=== PATIENT | male | born 1990 | race Caucasian/White ===

== ENCOUNTER 2016-05-27 19:57 | Emergency (ER) | payer BC ==
[2016-05-27 20:49] VITALS: BP 129/84
[2016-05-27] MEDS ORDERED: Ketorolac INJ* 30 MG/ML 1 ML VIAL IV PUSH ONE (22:00)
--- NOTE | 2016-05-27 22:13 | UC ---
Grace Luevano Anna, scribed for Kasie Pritchett MD on 05/27/16 at 2154 . Abdominal Pain Male HPI - HPI Summary HPI Summary: Patient is a 26 y/o male coming to [facility] presenting with gradual onset of constant epigastric abdominal pain that began this afternoon. He had a burger, fries, and beer for lunch and when he came home he did not feel well. He feels nauseous and bloated, as if there were a balloon in his abdomen. Per triage notes, he initially described the severity of his pain. The patient now describes the severity of the pain as 8/10. He experienced one episode of emesis this afternoon. Denies hematochezia, melena, hematuria, or other changes in urination. He describes the pain as similar to gastritis in December 05, 2015. Patient had an US of the gall bladder at that time, which did not reveal any acute findings, including no cholelithiasis. He was treated with Pantoprazole then, which he did not provide much relief. He tried one Pantoprazole today [employer] and it did not provide relief today either. He has never been scoped. - History of Current Complaint Chief Complaint: UCAbdominalPain Stated Complaint: UPPER ABD PAIN Hx Obtained From: Patient, Family/Ager Tender - Accompanied by significant other Onset/Duration: Gradual Onset, Lasting Hours, Still Present Timing: Constant Severity Initially: Moderate Severity Currently: Moderate Pain Intensity: 8 Pain Scale Used: 0-10 Numeric Location: Discrete At: RUQ, Epigastric Radiates: No Character: Other - bloating Aggravating Factor(s):: Food Alleviating Factor(s): Nothing Associated Signs And Symptoms: Positive: Nausea, Vomiting. Negative: Fever, Blood in Stool, Diarrhea - Allergies/Home Medications Allergies/Adverse Reactions: Allergies Allergy/AdvReac Type Severity Reaction Status Date / Time Cefuroxime [From Ceftin] Allergy Rash Verified 05/27/16 20:49 PMH/Surg Hx/FS Hx/Imm Hx Endocrine History Of: Denies: Diabetes Cardiovascular History Of: Denies: Hypertension GI/ History Of: Reports: Gastroesophageal Reflux - gastritis - Surgical History Surgical History: Yes Surgery Procedure, Year, and Place: Right shoulder 2011. Ear tube surgery as a child. - Family History Known Family History: Positive: Other - Hx kidney CA in grandfather. Negative: Hypertension, Diabetes Family History: Hx gall bladder disease in family on mother's side and paternal grandmother. - Social History Occupation: Employed Full-time - teacher Lives: With Family Alcohol Use: Occasionally Substance Use Type: None Smoking Status (MU): Never Smoked Tobacco Review of Systems Constitutional: Negative Skin: Negative Eyes: Negative ENT: Negative Respiratory: Negative Cardiovascular: Negative Gastrointestinal: Abdominal Pain, Vomiting, Other - nausea Genitourinary: Negative Motor: Negative Neurovascular: Negative Musculoskeletal: Negative Neurological: Negative Psychological: Negative All Other Systems Reviewed And Are Negative: Yes Physical Exam Triage Information Reviewed: Yes Appearance: Well-Appearing, Well-Nourished, Pain Distress Vital Signs: Initial Vital Signs Temp 97.2 F 05/27/16 20:45 Pulse 75 05/27/16 20:45 Resp 18 05/27/16 20:45 BP 129/84 05/27/16 20:45 Pulse Ox 99 05/27/16 20:45 High blood pressure noted. Vital Signs Reviewed: Yes Eyes: Positive: Conjunctiva Clear ENT Exam: Normal Neck: Positive: Supple Respiratory: Positive: Lungs clear, Normal breath sounds, No respiratory distress Cardiovascular: Positive: RRR, No Murmur, Pulses Normal, Brisk Capillary Refill Abdominal Exam: Other - Tender in RUQ and epigastric region. No rebound. Abdomen Description: Positive: No Organomegaly. Negative: Bruit, CVA Tenderness (R), CVA Tenderness (L), Distended, Guarding, Hepatomegaly, McBurney' s Point Tenderness, Peritoneal Signs, Pulsatile Mass, Splenomegaly Bowel Sounds: Positive: Present Musculoskeletal: Positive: Strength Intact, ROM Intact Neurological: Positive: Alert, Muscle Tone Normal Psychological Exam: Normal Skin Exam: Normal Abd Pain Male Course/Dx - Course Course Of Treatment: High blood pressure noted. Pt advised to have definite follow up regarding elevated BP within one month. Allergies noted. Discussed potential treatment options and diagnostic capabilities at [facility]. Patient agrees to be transferred. Discussed risk of travel by private car and advised that the patient not eat. Agrees to travel via ambulance. - Differential Dx/Clinical Impression Differential Diagnosis/HQI/PQRI: Gall Bladder Disease, Hepatitis, Pancreatitis, Peptic Ulcer Disease, Ureteral Stone, Other - gastritis Provider Diagnoses: RUQ and epigastric abdominal pain. elevated BP without diagnosis of HTN - Physician Notification/Consults Discussed Patient Care With: Called [facility] at 2202. Shahana Rincon (ED PA) at 2203. Agrees to accept patient at ED. Time Discussed With Above Provider: 22:03 Instructed by Provider To: MD Will See In ED Discharge - Discharge Plan Condition: Stable Disposition: TRANS HIGHER LVL OF CARE FAC Forms: *Work Release Referrals: Raheem Gonzalez MD [Primary Care Provider] - The documentation as recorded by the Grace herrera Anna accurately reflects the service I personally performed and the decisions made by , Kasie Pritchett MD.
== END 2016-05-27 22:26 | disposition short-term general hospital (02) ==
LOC: UCEAST 19:57
DX: R10.11 Right upper quadrant pain (principal); R10.13 Epigastric pain; R03.0 Elevated blood-pressure reading, without diagnosis of hypertension; R11.2 Nausea with vomiting, unspecified; K21.9 Gastro-esophageal reflux disease without esophagitis; Z88.1 Allergy status to other antibiotic agents
CPT/HCPCS: 96374; 99213; G0463; J1885

== ENCOUNTER 2016-05-27 22:53 | Emergency (ER) | payer BC ==
[2016-05-27] MEDS ORDERED: NS 0.9% 1000 ML* 1,000 ML IV ONE (22:59)
--- NOTE | 2016-05-27 23:23 | ED ---
Abdominal Pain/Male - HPI Summary HPI Summary: 26M presents with RUQ pain today s/p eating a burger. He states he has pain like this when he had gastritis. He states had normal u/s at this time. He states that he took pantoprazole at the time and has not taken it since except today which did not help. He did vomit once and he admits to nausea. He describes the pain as a balloon in his abdomen. He denies any dysura, diarrhea , constipation, or fever. He has not followed up with GI or been scoped before. He states pain is 4/10. - History of Current Complaint Stated Complaint: XFER FROM EAST Time Seen by Provider: 05/27/16 22:58 Pain Intensity: 5 - Allergies/Home Medications Allergies/Adverse Reactions: Allergies Allergy/AdvReac Type Severity Reaction Status Date / Time Cefuroxime [From Ceftin] Allergy Rash Verified 05/27/16 20:49 PMH/Surg Hx/FS Hx/Imm Hx Endocrine/Hematology History: Denies: Hx Diabetes Cardiovascular History: Denies: Hx Hypertension - Surgical History Surgery Procedure, Year, and Place: Right shoulder 2012. Ear tube surgery as a child. Infectious Disease History: No Infectious Disease History: Denies: Traveled Outside the [place] in Last 30 Days - Family History Known Family History: Positive: None, Other - Hx kidney CA in grandfather. Negative: Hypertension, Diabetes Family History: Hx gall bladder disease in family on mother's side and paternal grandmother. - Social History Alcohol Use: Occasionally Substance Use Type: Reports: None Smoking Status (MU): Never Smoked Tobacco Review of Systems Negative: Fever Negative: Chest Pain Negative: Shortness Of Breath Positive: Abdominal Pain - RUQ. Negative: Vomiting, Diarrhea, Nausea All Other Systems Reviewed And Are Negative: Yes Physical Exam Triage Information Reviewed: Yes Vital Signs On Initial Exam: Initial Vitals Temp Pulse Resp BP Pulse Ox 97.7 F 66 18 122/75 97 05/27/16 23:05 05/27/16 23:05 05/27/16 23:05 05/27/16 23:05 05/27/16 23:05 Vital Signs Reviewed: Yes Appearance: Positive: Well-Appearing Skin: Positive: Warm, Dry Head/Face: Positive: Normal Head/Face Inspection Eyes: Positive: Normal, Conjunctiva Clear Respiratory/Lung Sounds: Positive: Clear to Auscultation, Breath Sounds Present Cardiovascular: Positive: Normal, RRR Abdomen Description: Positive: Soft, Other: - mild tenderness to RUQ. Negative : Distended, Guarding Bowel Sounds: Positive: Present Diagnostics - Vital Signs Vital Signs Temp Pulse Resp BP Pulse Ox 05/27/16 23:05 97.7 F 66 18 122/75 97 - Laboratory Result Diagrams: 05/28/16 00:18 05/28/16 00:18 Lab Statement: Any lab studies that have been ordered have been reviewed, and results considered in the medical decision making process. - Ultrasound No standard instances Ultrasound Interpretation: Positive (See Comments) - normal gallbladder. no gallstones. no pericholecystic fluid. no gallbaldder wall thickening. u/s harding sign negative. normal common bile duct. trace free fluid in summer hepatis. unceratin etiology. recommend followup. Ultrasound Interpretation Completed By: Radiologist Re-Evaluation - Re-Evaluation First Eval Re-Evaluation Time: 01:37 Change: Improved Comment: sleeping in room Abdominal Pain Fem Course/Dx - Course Course Of Treatment: 26M presents as transfer from for epigastric pain today started after eatting burger. states similiar pain till when had gastritis in past. did vomit once without blood. on exam tender in RUQ with neg harding. labs WBC 11.2 and rest normal. u/s normal gallbladder. told could be gastritis again so should restart protonix and follow up with primary. patient understands and agrees with plan - Diagnoses Differential Diagnosis/HQI/PQRI: Gall Bladder Disease, Other - gastritis, gastroenteritis Provider Diagnoses: Epigastric pain Discharge - Discharge Plan Condition: Good Disposition: HOME Patient Education Materials: Epigastric Pain (ED) Referrals: Robert Condon MD [Medical Doctor] - Raheem Gonzalez MD [Primary Care Provider] - Additional Instructions: Take Pantoprazole once a day Follow up with primary care physician within 5 days Take Tylenol every 6 hours for pain Consider following up with GI Return to ED if develop fever, or any new or worsening symptoms
[2016-05-28 00:47] LABS: Hematocrit 45 % (42-52); Hemoglobin 15.2 g/dl (14.0-18.0); Mean Corpuscular HGB Conc 34 g/dl (31-36); Mean Corpuscular Hemoglobin 30 pg (27-31); Mean Corpuscular Volume 89 fL (80-94); Mean Platelet Volume 10 um3 (7.4-10.4); Red Blood Count 5.05 10^6/ul (4.0-5.4); Red Cell Distribution Width 13 % (10.5-15); White Blood Count 11.2 10^3/ul (3.5-10.8)
[2016-05-28 00:48] LABS: Albumin 4.1 g/dL (3.2-5.2); BUN/Creatinine Ratio 19.6 (8-20); Calcium 8.5 mg/dL (8.6-10.3); EGFR African American 122.3 (>60); EGFR Non-African American 95.1 (>60); Globulin 2.4 g/dL (2-4); Potassium 3.7 mmol/L (3.5-5.0); Total Protein 6.5 g/dL (6.4-8.9)
[2016-05-28 01:05] LABS: Urine Bilirubin Negative (Negative); Urine Glucose Negative (Negative); Urine Nitrite Negative (Negative)
[2016-05-28 01:35] VITALS: BP 122/76
--- NOTE | 2016-05-28 07:44 | RAD ---
INDICATION: Right upper quadrant pain COMPARISON: December 05, 2015 TECHNIQUE: Longitudinal and transverse scans of the right upper quadrant were obtained. Doppler interrogation of the hepatic and portal venous system was performed. FINDINGS: Liver: The liver is mildly enlarged. There are no focal masses.. The liver measures 19.3 cm in cephalocaudal dimension. Vessels: There is normal hepatic and portal venous flow. Bile ducts: There is no evidence of intrahepatic or extrahepatic ductal dilatation. The common duct measures 0.2 cm. Gallbladder: The sonographic appearance of the gallbladder is normal. There is no evidence of cholelithiasis, thickening of the gallbladder wall, or pericholecystic fluid. Pancreas: The visualized pancreas appears normal Right kidney: The right kidney is normal in size and echogenicity. There are no masses or calculi. There is no evidence of hydronephrosis. The right kidney measures 11.2 x 6.2 x 4.2 cm. IVC and aorta: The aorta and superior vena cava appear normal. Fluid: Trace ascites. Other: None. IMPRESSION: HEPATOMEGALY. TRACE ASCITES.
== END 2016-05-28 01:34 | disposition home or self-care (01) ==
LOC: ED 22:53
DX: R10.13 Epigastric pain (principal); R10.11 Right upper quadrant pain; R10.811 Right upper quadrant abdominal tenderness; R11.2 Nausea with vomiting, unspecified
CPT/HCPCS: 36415; 76705; 80053; 81003; 83690; 85025; 86141; 96360; 99282

== ENCOUNTER → 2016-07-15 15:30 | Emergency (ER) | payer BC ==
[~2016-07-15 15:30] MED LIST: Morphine INJ* 4 MG/ML 1 ML SYRINGE IV ONE; NS 0.9% 1000 ML* 1,000 ML IV ONE; Ondansetron INJ* 2 MG/ML VIAL IV ONE; Pantoprazole IV* 40 MG IV ONE
[2016-07-15 17:51] LABS: Hematocrit 48 % (42-52); Hemoglobin 16.5 g/dl (14.0-18.0); Mean Corpuscular HGB Conc 34 g/dl (31-36); Mean Corpuscular Hemoglobin 30 pg (27-31); Mean Corpuscular Volume 88 fL (80-94); Mean Platelet Volume 9 um3 (7.4-10.4); Red Blood Count 5.48 10^6/ul (4.0-5.4); Red Cell Distribution Width 13 % (10.5-15); White Blood Count 14.3 10^3/ul (3.5-10.8)
[2016-07-15 17:56] LABS: Urine Bilirubin Negative (Negative); Urine Glucose Negative (Negative); Urine Nitrite Negative (Negative)
[2016-07-15 18:09] LABS: Albumin 4.7 g/dL (3.2-5.2); BUN/Creatinine Ratio 12.4 (8-20); C Reactive Protein 1.41 mg/L (< 5.00); Calcium 9.3 mg/dL (8.6-10.3); EGFR African American 82.1 (>60); EGFR Non-African American 63.8 (>60); Globulin 3.2 g/dL (2-4); Potassium 3.8 mmol/L (3.5-5.0); Total Bilirubin 1.3 mg/dL (0.2-1.0); Total Protein 7.9 g/dL (6.4-8.9)
[2016-07-15 19:22] VITALS: BP 136/78
== END | disposition home or self-care (01) ==
LOC: ED 15:30
DX: R10.13 Epigastric pain (principal)
CPT/HCPCS: 36415; 80053; 81003; 82150; 83605; 83690; 85025; 86140; 96374; 96375; 99283; J2270; J2405

== ENCOUNTER 2016-09-16 11:13 | Emergency (ER) | payer BC ==
--- NOTE | 2016-09-16 11:24 | UC ---
HPI Wound/Suture Re-check - HPI Summary HPI Summary: 26 YEAR OLD MALE PRESENTS FOR STAPLE REMOVAL FORM SCALP (6 MOE - BILATERAL LACERATIONS 4 AND 2 MOE) - History Of Current Complaint Chief Complaint: UCLaceration Stated Complaint: STAPLE REMOVAL Time Seen by Provider: 09/16/16 11:17 - Allergies/Home Medications Allergies/Adverse Reactions: Allergies Allergy/AdvReac Type Severity Reaction Status Date / Time Cefuroxime [From Ceftin] Allergy Rash Verified 05/27/16 20:49 PMH/Surg Hx/FS Hx/Imm Hx - Surgical History Surgical History: Yes Surgery Procedure, Year, and Place: Right shoulder 2012. Ear tube surgery as a child. - Family History Known Family History: Positive: None, Other - Hx kidney CA in grandfather. Negative: Hypertension, Diabetes Family History: Hx gall bladder disease in family on mother's side and paternal grandmother. - Social History Alcohol Use: Occasionally Alcohol Amount: "less than half a drink a day, most days" Substance Use Type: None Smoking Status (MU): Never Smoked Tobacco Review of Systems Constitutional: Negative Skin: Other - 6 MOE REMOVED SCALP LACERATION C/D/I Eyes: Negative ENT: Negative Respiratory: Negative Cardiovascular: Negative Gastrointestinal: Negative Genitourinary: Negative Motor: Negative Neurovascular: Negative Musculoskeletal: Negative Neurological: Negative Psychological: Negative All Other Systems Reviewed And Are Negative: Yes Physical Exam Triage Information Reviewed: Yes Vital Signs: Initial Vital Signs Temp 36.6 C 09/16/16 11:15 Pulse 80 09/16/16 11:15 Resp 17 09/16/16 11:15 Pulse Ox 100 09/16/16 11:15 Eye Exam: Normal ENT Exam: Normal Dental Exam: Normal Neck exam: Normal Neck: Positive: 1 Respiratory Exam: Normal Cardiovascular Exam: Normal Abdominal Exam: Normal Musculoskeletal Exam: Normal Neurological Exam: Normal Psychological Exam: Normal Skin Exam: Normal Skin: Positive: Other - 6 MOE REMOVED SCALP LACERATION C/D/I Course/Dx - Differential Dx - Laceration/Wound Provider Diagnoses: STAPLE REMOVAL Discharge - Discharge Plan Condition: Stable Disposition: HOME Patient Education Materials: Staple Care (ED) Referrals: Raheem Gonzalez MD [Primary Care Provider] - If Needed
== END 2016-09-16 11:27 | disposition home or self-care (01) ==
LOC: UCEAST 11:13
DX: Z48.02 Encounter for removal of sutures (principal)
CPT/HCPCS: 99212; G0463

== ENCOUNTER 2017-04-06 15:23 | Emergency (ER) | payer BC ==
[2017-04-06] MEDS ORDERED: Morphine INJ* 4 MG/ML 1 ML CARPUJECT IV ONE (16:13)
[2017-04-06] MEDS ORDERED: NS 0.9% 1000 ML* 1,000 ML IV SCH (16:15)
[2017-04-06] MEDS ORDERED: Ondansetron INJ* 2 MG/ML VIAL IV ONE (16:21)
[2017-04-06] MEDS ORDERED: Morphine INJ* 4 MG/ML 1 ML SYRINGE (NEW SYRINGE VERSION) ONE (16:29)
[2017-04-06] MEDS ORDERED: Morphine INJ* 4 MG/ML 1 ML SYRINGE (NEW SYRINGE VERSION) IV ONE (16:30)
[2017-04-06 17:09] LABS: ABS Basophils 0 10^3/ul (0-0.2); ABS Eosinophils 0.2 10^3/ul (0-0.6); ABS Lymphocytes 2.8 10^3/ul (1.0-4.8); ABS Monocytes 0.7 10^3/ul (0-0.8); ABS Neutrophils 5.3 10^3/ul (1.5-7.7); ABS Nucleated RBC 0 10^3/ul; Eosinophil % 2.2 % (0-6); Hematocrit 45 % (42-52); Hemoglobin 15.5 g/dl (14.0-18.0); Lymphocyte % 31.5 % (25-47); Mean Corpuscular HGB Conc 35 g/dl (31-36); Mean Corpuscular Hemoglobin 31 pg (27-31); Mean Corpuscular Volume 89 fL (80-94); Mean Platelet Volume 9 um3 (7.4-10.4); Nucleated Red Blood Cells % 0.1; Platelet Count 220 10^3/ul (150-450); Red Blood Count 5.03 10^6/ul (4.0-5.4); Red Cell Distribution Width 13 % (10.5-15)
[2017-04-06 17:23] LABS: EGFR Non-African American 109.8 (>60)
[2017-04-06 18:37] VITALS: BP 113/79
--- NOTE | 2017-04-06 18:48 | RAD ---
Indication: Abdominal pain, nausea, vomiting. Comparison: No relevant prior exams available on the [facility] PACS for comparison. Technique: Supine and upright views of the abdomen. Report: No radiographic evidence for free air. Unremarkable bowel gas pattern. Small volume of stool in the colon without significant rectal distension. Negative for suspicious calcifications. Unremarkable soft tissue contours. IMPRESSION: No abdominal pelvic pathologic process evident. Negative exam.
--- NOTE | 2017-04-13 19:43 | ED ---
Prosper Luevano Rebecca, scribed for Geovanni Tirado MD on 04/06/17 at 1609 . Abdominal Pain/Male - HPI Summary HPI Summary: Pt is a 27 y/o M who presents to ED c/o abdominal pain. Pain is in the RUQ and began 1100 this morning, gradually worsening since onset. Pain is described as sharp and pressure that radiates into the back. Sx aggravated by nothing, alleviated by Dicyclomine. Additionally c/o "swelling inside" and N/V with 6-7 episodes with slight hematemesis during the second episode. Denies melena, blood in stool, diarrhea, decreased appetite, fever, and chills. Prior similar episodes since November 2015 with an unknown catalyst. Has seen a GI with a negative CT and endoscopy in July 2016. Had 2 beers last night which is more than he'd usually have in a week. Negative FHx ulcerative colitis and Crohn's Disease. - History of Current Complaint Chief Complaint: EDAbdPain Stated Complaint: ABD PAIN,VOMITING BLOOD Time Seen by Provider: 04/06/17 16:03 Hx Obtained From: Patient Onset/Duration: Still Present Severity Currently: Severe Pain Intensity: 8 Pain Scale Used: 0-10 Numeric Location: Discrete At: RUQ Radiates: Yes Radiates to: Back Character: Sharp, Other: - Pressure Aggravating Factor(s): Nothing Alleviating Factor(s): Medications - Dicyclomine Associated Signs And Symptoms: Positive: Nausea, Vomiting. Negative: Fever, Blood in Stool, Decreased Appetite, Diarrhea Similar Episode/Dx As:: Similar episodes since November 2015 - Allergies/Home Medications Allergies/Adverse Reactions: Allergies Allergy/AdvReac Type Severity Reaction Status Date / Time MS Cefuroxime [From Ceftin] Allergy Rash Verified 05/27/16 20:49 PMH/Surg Hx/FS Hx/Imm Hx Endocrine/Hematology History: Denies: Hx Diabetes Cardiovascular History: Denies: Hx Hypertension - Surgical History Surgery Procedure, Year, and Place: Right shoulder 2011. Ear tube surgery as a child. Infectious Disease History: No Infectious Disease History: Denies: Hx Clostridium Difficile, Hx Hepatitis, Hx Human Immunodeficiency Virus (HIV), Hx of Known/Suspected MRSA, Hx Shingles, Hx Tuberculosis, Hx Known/ Suspected VRE, Hx Known/Suspected VRSA, History Other Infectious Disease, Traveled Outside the [place] in Last 30 Days - Family History Known Family History: Positive: Other - Hx kidney CA in grandfather. Negative: Hypertension, Diabetes Family History: Hx gall bladder disease in family on mother's side and paternal grandmother. No FHx UC or Crohn's. - Social History Alcohol Use: Occasionally Alcohol Amount: "less than half a drink a day, most days" Substance Use Type: Reports: None Smoking Status (MU): Never Smoked Tobacco Review of Systems Negative: Fever, Chills Positive: Abdominal Pain, Vomiting - hematemesis, Nausea, Other - "swelling inside". Negative: Diarrhea Positive: other - NEGATIVE: Melena, blood in stool, decreased appetite All Other Systems Reviewed And Are Negative: Yes Physical Exam - Summary Physical Exam Summary: Appearance: Well-appearing, Well-nourished Skin: Warm, Dry, No rash Eyes: Normal, PERRL, EOMI, sclera anicteric ENT: Normal Neck: Supple, nontender Respiratory: Clear to auscultation Cardiovascular: S1, S2, no murmur, no rub, no gallop Abdomen: Soft, mid-epigastric and RUQ pain, no organomegaly Bowel sounds: Present Musculoskeletal: Normal, Strength/ROM Intact, no edema, pulses symmetrical Neurological: Normal, A&Ox3, cranial nerves II-XII WNL, follows commands, gait not tested, sensation intact to pin and light touch Psychiatric: affect normal, behavior appropriate, dressed appropriately, judgment intact Triage Information Reviewed: Yes Vital Signs On Initial Exam: Initial Vitals Temp Pulse Resp BP Pulse Ox 97.9 F 68 16 129/89 96 04/06/17 15:28 04/06/17 15:28 04/06/17 15:28 04/06/17 15:28 04/06/17 15:28 Vital Signs Reviewed: Yes Diagnostics - Vital Signs Vital Signs Temp Pulse Resp BP Pulse Ox 04/06/17 15:28 97.9 F 68 16 129/89 96 - Laboratory Result Diagrams: 04/06/17 17:00 04/06/17 17:00 Lab Statement: Any lab studies that have been ordered have been reviewed, and results considered in the medical decision making process. - Radiology Abd XR Xray Interpretation: No Acute Changes - No abdominal pelvic pathologic process evident. Negative exam. Dr. Tirado reviewed this radiology report. Radiology Interpretation Completed By: Radiologist Re-Evaluation - Re-Evaluation First Eval Re-Evaluation Time: 17:31 Change: Improved Comment: Pt's pain has improved. Second Eval Re-Evaluation Time: 18:20 Change: Improved Comment: Pt's pain has improved, discussed XR results and he expresses that he would like to go home. Abdominal Pain Fem Course/Dx - Course Assessment/Plan: Pt is a 27 y/o M who presents to ED c/o RUQ abd pain since 1100 this morning, gradually worsening since onset. Pain is described as sharp and pressure that radiates into the back. Sx alleviated by Dicyclomine. Additionally c/o "swelling inside" and N/V with 6-7 episodes with slight hematemesis during the second episode. Denies melena, blood in stool, diarrhea, decreased appetite, fever, and chills. Prior similar episodes since November 2015 with an unknown catalyst. Has seen a GI with a negative CT and endoscopy in July 2016. Had 2 beers last night which is more than he'd usually have in a week. Negative FHx ulcerative colitis and Crohn's Disease. Abd XR reveals no acute findings. Bloodwork was done. In the ED course, pt received fluids, morphine and zofran which improved sx. Pt will be D/C to home with instructions to followup with his GI. He understands and agrees. Allergies noted. - Diagnoses Provider Diagnoses: Nausea & vomiting, Hepatomegaly, Etiology uncertain Discharge - Discharge Plan Condition: Fair Disposition: HOME Prescriptions: Ondansetron ODT TAB* [Zofran 4 MG Odt TAB*] 4 mg PO Q6H PRN #20 tab.odt MDD 4 PRN Reason: Nausea/Vomiting Patient Education Materials: Acute Nausea and Vomiting (ED) Referrals: Raheem Gonzalez MD [Primary Care Provider] - Additional Instructions: revisit gastroenterology for further evaluation , avoidance of NSAIDS , and alcohol The documentation as recorded by the Prosper herrera Rebecca accurately reflects the service I personally performed and the decisions made by me, Geovanni Tirado MD.
== END 2017-04-06 18:34 | disposition home or self-care (01) ==
LOC: ED 15:23
DX: R11.2 Nausea with vomiting, unspecified (principal); R10.11 Right upper quadrant pain; R16.0 Hepatomegaly, not elsewhere classified; Z88.3 Allergy status to other anti-infective agents
CPT/HCPCS: 36415; 74019; 80053; 83690; 85025; 96374; 96375; 99283; J2270; J2405

== ENCOUNTER 2017-05-26 18:16 | Emergency (ER) | payer BC ==
[2017-05-26] MEDS ORDERED: Ondansetron INJ* 2 MG/ML VIAL IV ONE (18:39)
[2017-05-26] MEDS ORDERED: Morphine INJ* 4 MG/ML 1 ML CARPUJECT IV ONE ×2 (18:40→19:46)
[2017-05-26] MEDS ORDERED: Morphine INJ* 4 MG/ML 1 ML SYRINGE (NEW SYRINGE VERSION) ONE (18:45)
[2017-05-26 19:01] LABS: ABS Basophils 0 10^3/ul (0-0.2); ABS Eosinophils 0.1 10^3/ul (0-0.6); ABS Lymphocytes 4.2 10^3/ul (1.0-4.8); ABS Monocytes 0.7 10^3/ul (0-0.8); ABS Neutrophils 4.3 10^3/ul (1.5-7.7); ABS Nucleated RBC 0 10^3/ul; Eosinophil % 1.4 % (0-6); Hematocrit 45 % (42-52); Hemoglobin 15.9 g/dl (14.0-18.0); Lymphocyte % 45.2 % (25-47); Mean Corpuscular HGB Conc 35 g/dl (31-36); Mean Corpuscular Hemoglobin 31 pg (27-31); Mean Corpuscular Volume 88 fL (80-94); Mean Platelet Volume 9.5 um3 (7.4-10.4); Nucleated Red Blood Cells % 0.1; Platelet Count 207 10^3/ul (150-450); Red Blood Count 5.11 10^6/ul (4.0-5.4); Red Cell Distribution Width 13 % (10.5-15); White Blood Count 9.3 10^3/ul (3.5-10.8)
[2017-05-26 19:13] LABS: EGFR Non-African American 81.6 (>60)
--- OUTSIDE RECORDS SUMMARY | 2017-05-26 19:30 | XMS REPORT ---
:1990 External Reference #:[id number] [facility] Address [address] [place] [address] Phone [phone] Care Team Providers Name Role Phone Raheem Gonzalez MD Primary Care Physician Unavailable Payers Type Date Identification Numbers Payment Provider Subscriber Commercial Effective: Policy Number: [employer] Antonio Telles 2014 [id number] [facility] PayID: [id number] [address] [address] [place] [address] Problems Date Description Provider Status Onset: 03/19/2013 Bronchitis Active Onset: 12/12/2015 Acute peptic ulcer without hemorrhage, without Active perforation AND without obstruction Social History Description No Information Available Allergies, Adverse Reactions, Alerts Date Description Reaction Status Severity Comments 03/19/2013 Ceftin active Medications Medication Date Status Form Strength Qnty SIG Indications Ordering Provider Claritin 05/26/ Active Tablets 10mg Dispense Unknown 2014 Take 1 tablet orally every day Refills: 3 Pantoprazole 12/18/ Hx Tablets DR 40mg Dispense Unknown Sodium 2015 - 30 Take 1 04/18/ tablet, 2018 delayed release (enteric coated) orally every day Refills: 3 Zithromax Z-Kwame 02/24/ Hx Tablets 250mg Take 1 Unknown 2014 - tablet 12/11/ orally 2016 per schedule Refills: 0 Augmentin 05/26/ Hx Tablets 875-125mg Take 1 Unknown 2014 - tablet 12/11/ orally 2016 twice a day Refills: 0 Zithromax Z-Kwame 03/19/ Hx Tablets 250mg Dispense 1 Unknown 2013 - Take the 03/24/ dose 2014 orally dir for 5 days. Refills: 0 Medrol 01/23/ Hx TBPK 4mg Dispense 1 Unknown 2013 - Take 1 03/25/ tablet, 2013 dose pack orally Orally Directed Refills: 0 Benzonatate 03/19/ Hx Capsules 200mg Dispense Unknown 2013 - Take 1 03/26/ capsule 2013 (hard, soft, etc.) orally Three times a day, needed for cough fill todayRefil ls: 0 Vital Signs Date Vital Result Comment 05/08/2017 Height 67 inches 5'7" Weight 175.00 lb BMI (Body Mass Index) 27.4 kg/m2 BP Systolic 103 mmHg BP Diastolic 80 mmHg Heart Rate 70 /min Body Temperature 97.4 F 04/18/2017 Height 67 inches 5'7" Weight 179.00 lb BMI (Body Mass Index) 28.0 kg/m2 BP Systolic 148 mmHg BP Diastolic 70 mmHg Body Temperature 97.6 F 06/05/2016 Height 67 inches 5'7" Weight 167.00 lb BMI (Body Mass Index) 26.2 kg/m2 BP Systolic 110 mmHg BP Diastolic 78 mmHg Heart Rate 76 /min Body Temperature 97.7 F 12/12/2015 Height 67 inches Weight 127.50 lb BMI (Body Mass Index) 19.9671 kg/m2 Heart Rate 68 /min Body Temperature 97.4 F 05/26/2014 Height 67 inches Weight 158.00 lb BMI (Body Mass Index) 24.7436 kg/m2 BP Systolic 120 mmHg BP Diastolic 82 mmHg Heart Rate 88 /min Body Temperature 97.3 F 03/19/2013 Height 67 inches Weight 165.00 lb BMI (Body Mass Index) 25.8398 kg/m2 BP Systolic 128 mmHg BP Diastolic 78 mmHg Heart Rate 84 /min Body Temperature 97.4 F Results Test Date Test Result H/L Range Note Xray 04/18/2017 Hepatobiliary System Imaging <pending> W/Pharmacy Intervention Procedures Description No Information Encounters Type Date Location Provider CPT E/M Dx Office Visit 05/08/2017 [facility] [place] [address] Z01.818 10:30a Dayne R10.10 Office Visit 04/18/2017 10:00a [facility] [place] [address] R10.10 Dayne R14.0 R53.83 M25.50 Office Visit 06/05/2016 9:30a [facility] Primary Care AT Raheem Gonzalez, [address] R10.10 Dayne THOMPSON Plan of Care 05/08/2017 - MD Ivon, [id number] Encounter for other preprocedural examinationComments:Pre-op clearance for biliary dyskinesia was provided to the patient.R10.10 Upper abdominal pain, unspecifiedComments:Results of HIDA scan and all the other labs discussed with the patient. The ejection fraction was &lt ;2 %.Follow up:1 year for CPE.
[2017-05-26] MEDS ORDERED: HYDROcodone/ACETAMIN 5-325 MG* 1 TAB PO ONE (20:01)
--- NOTE | 2017-05-26 20:16 | ED ---
Abdominal Pain/Male - HPI Summary HPI Summary: Patient is an otherwise healthy 27-year-old male with a history of biliary dyskinesia who presents to the ED with right upper quadrant pain one hour after eating a large meal on this Easter dinner. He denies any nausea, vomiting, diarrhea, constipation. Denies any other illness or pain. Denies any headaches , fevers, sweats, chills. Surgeon in [place] plans to do surgery in 1 month. No history of gallstones. HIDA scan from 2 months ago showed biliary dyskinesia with no other acute findings. He states he experiences flares every few weeks, but has not had any this painful. Worsening pain is after eating, and he states he has been eating healthier foods such as solids and trying to avoid fatty foods. - History of Current Complaint Chief Complaint: EDAbdPain Stated Complaint: RT SIDE PAIN Time Seen by Provider: 05/26/17 18:32 Hx Obtained From: Patient Onset/Duration: Sudden Onset Timing: Constant Severity Initially: Moderate Severity Currently: Moderate Pain Intensity: 7 Pain Scale Used: 0-10 Numeric Location: Discrete At: RUQ Radiates: No Character: Dull, Cramping Aggravating Factor(s): Food Alleviating Factor(s): Nothing Associated Signs And Symptoms: Positive: Negative - Risk Factors Testicular Torsion: Negative Cardiac Risk Factors: Negative - Allergies/Home Medications Allergies/Adverse Reactions: Allergies Allergy/AdvReac Type Severity Reaction Status Date / Time cefuroxime [From Ceftin] Allergy Rash Verified 05/26/17 18:19 PMH/Surg Hx/FS Hx/Imm Hx Previously Healthy: Yes Endocrine/Hematology History: Denies: Hx Diabetes Cardiovascular History: Denies: Hx Hypertension - Surgical History Surgery Procedure, Year, and Place: Right shoulder 2012. Ear tube surgery as a child. - Immunization History Hx Pertussis Vaccination: No Immunizations Up to Date: Unable to Obtain/Confirm Infectious Disease History: No Infectious Disease History: Denies: Hx Clostridium Difficile, Hx Hepatitis, Hx Human Immunodeficiency Virus (HIV), Hx of Known/Suspected MRSA, Hx Shingles, Hx Tuberculosis, Hx Known/ Suspected VRE, Hx Known/Suspected VRSA, History Other Infectious Disease, Traveled Outside the [place] in Last 30 Days - Family History Known Family History: Positive: None, Other - Hx kidney CA in grandfather. Negative: Hypertension, Diabetes Family History: Hx gall bladder disease in family on mother's side and paternal grandmother. No FHx UC or Crohn's. - Social History Occupation: Employed Full-time Lives: With Family Alcohol Use: Occasionally Alcohol Amount: "less than half a drink a day, most days" Hx Substance Use: No Substance Use Type: Reports: None Hx Tobacco Use: No Smoking Status (MU): Never Smoked Tobacco Review of Systems Negative: Fever, Chills, Fatigue, Skin Diaphoresis Cardiovascular: Negative Respiratory: Negative Positive: Abdominal Pain. Negative: Vomiting, Diarrhea, Nausea Genitourinary: Negative Positive: no symptoms reported, see HPI Musculoskeletal: Negative Neurological: Negative All Other Systems Reviewed And Are Negative: Yes Physical Exam Triage Information Reviewed: Yes Vital Signs On Initial Exam: Initial Vitals Temp Pulse Resp BP Pulse Ox 96.5 F 71 20 130/81 97 05/26/17 18:20 05/26/17 18:20 05/26/17 18:20 05/26/17 18:20 05/26/17 18:20 Vital Signs Reviewed: Yes Appearance: Positive: Pain Distress Skin: Positive: Skin Color Reflects Adequate Perfusion Head/Face: Positive: Normal Head/Face Inspection Eyes: Positive: EOMI, ZAN, Conjunctiva Clear Neck: Positive: Supple, No Lymphadenopathy Respiratory/Lung Sounds: Positive: Clear to Auscultation, Breath Sounds Present Cardiovascular: Positive: Normal, RRR, Pulses are Symmetrical in both Upper and Lower Extremities Musculoskeletal: Positive: Normal, Strength/ROM Intact Neurological: Positive: Sensory/Motor Intact, Alert, Oriented to Person Place, Time, Speech Normal Psychiatric: Positive: Normal, Affect/Mood Appropriate - Mason Coma Scale Best Eye Response: 3 - To Speech Diagnostics - Vital Signs Vital Signs Temp Pulse Resp BP Pulse Ox 05/26/17 18:54 64 123/87 99 05/26/17 18:49 18 05/26/17 18:43 66 99 05/26/17 18:20 96.5 F 71 20 130/81 97 - Laboratory Lab Results: Lab Results 05/26/17 05/26/17 05/26/17 Range/Units 18:48 18:48 18:48 WBC 9.3 (3.5-10.8) 10^3/ul RBC 5.11 (4.0-5.4) 10^6/ul Hgb 15.9 (14.0-18.0) g/dl Hct 45 (42-52) % MCV 88 (80-94) fL MCH 31 (27-31) pg MCHC 35 (31-36) g/dl RDW 13 (10.5-15) % Plt Count 207 (150-450) 10^3/ul MPV 9.5 (7.4-10.4) um3 Neut % (Auto) 45.8 (38-83) % Lymph % (Auto) 45.2 (25-47) % Fisher % (Auto) 7.1 H (0-7) % Eos % (Auto) 1.4 (0-6) % Baso % (Auto) 0.5 (0-2) % Absolute Neuts (auto) 4.3 (1.5-7.7) 10^3/ul Absolute Lymphs (auto) 4.2 (1.0-4.8) 10^3/ul Absolute Monos (auto) 0.7 (0-0.8) 10^3/ul Absolute Eos (auto) 0.1 (0-0.6) 10^3/ul Absolute Basos (auto) 0 (0-0.2) 10^3/ul Absolute Nucleated RBC 0 10^3/ul Nucleated RBC % 0.1 Sodium 140 (139-145) mmol/L Potassium 3.7 (3.5-5.0) mmol/L Chloride 104 (101-111) mmol/L Carbon Dioxide 28 (22-32) mmol/L Anion Gap 8 (2-11) mmol/L BUN 14 (6-24) mg/dL Creatinine 1.10 (0.67-1.17) mg/dL Est GFR ( Amer) 104.9 (>60) Est GFR (Non-Af Amer) 81.6 (>60) BUN/Creatinine Ratio 12.7 (8-20) Glucose 92 (70-100) mg/dL Lactic Acid 0.6 (0.5-2.0) mmol/L Calcium 9.4 (8.6-10.3) mg/dL Total Bilirubin 1.50 H (0.2-1.0) mg/dL AST 21 (13-39) U/L ALT 26 (7-52) U/L Alkaline Phosphatase 45 (34-104) U/L C-Reactive Protein 1.15 (< 5.00) mg/L Total Protein 7.0 (6.4-8.9) g/dL Albumin 4.6 (3.2-5.2) g/dL Globulin 2.4 (2-4) g/dL Albumin/Globulin Ratio 1.9 (1-3) Lipase 42 (11.0-82.0) U/L Result Diagrams: 05/26/17 18:48 05/26/17 18:48 Lab Statement: Any lab studies that have been ordered have been reviewed, and results considered in the medical decision making process. Abdominal Pain Fem Course/Dx - Course Course Of Treatment: During the course of treatment, the patient's evaluated for right upper quadrant pain. He has a history of biliary dyskinesia and states he ate a large meal this afternoon. Pain began around 2 PM (approximate 4 hours ago) and has remained constant. Pain is approximately a 9 out of 10, constant with a aching and pressure feeling. Due to an already diagnosed biliary dyskinesia with no evidence of cholelithiasis, choledocholithiasis and has no fevers, sweats, chills, ultrasound is not ordered. He is given 4 mg Zofran and 4 mg morphine IV with minimal relief. 1 hour later he is given an additional 4 mg morphine with relief. Due to pharmacy closing, I have given him 4 [place] to go for overnight and have given him a prescription for Percocet. - Diagnoses Differential Diagnosis/HQI/PQRI: Other - biliary obstruction Provider Diagnoses: Biliary dyskinesia Discharge - Sign-Out/Discharge Documenting (check all that apply): Discharge - Discharge Plan Condition: Stable Disposition: HOME Prescriptions: oxyCODONE/Acetamin 10/325(NF) [Percocet 10/325 (NF)] 1 tab PO QID #15 tab MDD 4 Patient Education Materials: Biliary Dyskinesia (DC) Referrals: [place] Valle MD [Primary Care Provider] - Additional Instructions: Please follow up with your PCP and surgeon as scheduled I have given you pain medication for any flare ups of your pain until your surgery can be completed. - Billing Disposition and Condition Condition: STABLE Disposition: HOME
[2017-05-26] MEDS ORDERED: Morphine INJ* 4 MG/ML 1 ML SYRINGE (NEW SYRINGE VERSION) IV ONE (20:17)
[2017-05-26 21:11] VITALS: BP 135/86
== END 2017-05-26 21:07 | disposition home or self-care (01) ==
LOC: ED 18:16
DX: K82.8 Other specified diseases of gallbladder (principal); R10.11 Right upper quadrant pain
CPT/HCPCS: 36415; 80053; 83605; 83690; 85025; 86140; 99282; J2270; J2405